=== PATIENT | female | born 1995 | race Hispanic/Latino ===

== ENCOUNTER 2018-08-21 19:14 | Emergency (ER) | payer OTHER ==
[~2018-08-21] VITALS: Ht 170.2 cm; Wt 90.9 kg
[2018-08-21 19:15] VITALS: BP 132/74
[2018-08-21] MEDS ORDERED: BACT800T5 PO (19:49)
[2018-08-21] MEDS ORDERED: BACI500O8 TOP (19:51)
[2018-08-21] MEDS ORDERED: BACTRIM 160MG/800MG DS TAB PO ONE (20:00)
== END 2018-08-21 20:18 | disposition home or self-care (01) ==
LOC: M ED 19:14
DX: L05.01 Pilonidal cyst with abscess (principal); Z87.42 Personal history of other diseases of the female genital tract

== ENCOUNTER 2018-10-13 21:02 | Emergency (ER) | payer OTHER ==
[~2018-10-13] VITALS: Ht 165.1 cm; Wt 90.9 kg
[~2018-10-13 21:02] MED LIST: BACI500O8 TOP; BACT800T5 PO
[2018-10-13 22:16] LABS: BASO % 0.5 % (0.0-1.0); EOS # 0.1 10^3/uL (0.0-0.50); EOS % 1.6 % (0.0-3.0); HEMATOCRIT 41.8 % (36.0-47.0); HEMOGLOBIN 14.2 g/dl (12.0-15.5); LYMPH # 2.6 10^3/uL (1.5-6.5); MEAN CORPUSCULAR HEMOGLOBIN 29.7 pg (27.0-33.0); MEAN CORPUSCULAR VOLUME 87.4 fl (80.0-96.0); MONO # 0.4 10^3/uL (0.0-0.8); MONO % 6.9 % (0.0-5.0); NEUTROPHILS % 48.8 % (36.0-66.0); PLATELET COUNT, AUTOMATED 228 10^3/uL (150-450); RED BLOOD COUNT 4.78 10^6/uL (4.00-5.40); WHITE BLOOD COUNT 6.1 10^3/uL (4.0-10.0)
[2018-10-13] MEDS ORDERED: NS 1,000 ML IV ONE (22:30)
[2018-10-13 22:42] LABS: BILIRUBIN, URINE MANUAL NEGATIVE (NEGATIVE); GLUCOSE, URINE (UA) MANUAL NEGATIVE (NEGATIVE); KETONE, URINE MANUAL NEGATIVE (NEGATIVE); UROBILINOGEN, URINE MANUAL NORMAL (NORMAL)
[2018-10-13 22:43] LABS: BLOOD UREA NITROGEN 12 MG/DL (7-18); CALCIUM LEVEL 9.2 MG/DL (8.5-10.1); CARBON DIOXIDE LEVEL 28 MEQ/L (21-32); CHLORIDE LEVEL 104 MEQ/L (98-107); CREATININE FOR GFR 0.99 MG/DL (0.55-1.30); GLOMERULAR FILTRATION RATE > 60.0 (>60); GLUCOSE, FASTING 80 MG/DL (70-100); POTASSIUM SERUM 3.8 MEQ/L (3.5-5.1); SODIUM LEVEL 139 MEQ/L (136-145)
[2018-10-13 22:48] LABS: BACTERIA, URINE NONE SEEN; HYALINE CAST, URINE NONE SEEN /lpf (0-1); RBC, URINE 40-50 /hpf (0-3); SQUAMOUS EPITHELIAL CELL URINE SMALL AMOUNT /hpf (SMALL AMT)
[2018-10-13 22:51] LABS: HCG, SERUM QUALITATIVE NEGATIVE (NEGATIVE)
--- NOTE | 2018-10-13 23:33 | REPVR ---
EXAM: US Pelvis Complete, Transabdominal EXAM DATE/TIME: 10/13/2018 11:14 PM CLINICAL HISTORY: 22 years old, female; Signs and symptoms; Menstruation abnormalities; Excessive menstruation; Additional info: Heavy vaginal bleeding x 2 weeks, HX of ruptured cyst TECHNIQUE: Imaging protocol: Real-time transabdominal pelvic ultrasound with image documentation. Complete exam. COMPARISON: No relevant prior studies available. FINDINGS: Uterus/cervix: Uterus measures 7.5 x 3.7 x 5.3 cm. Endometrial complex measures 7.4 mm. Right adnexa: Right ovary measures 3.6 x 2.8 x 3.1 cm. Left adnexa: Left ovary measures 4.2 x 2.5 x 1.7 cm. Free fluid: None. Bladder: Normal. IMPRESSION: Normal study. Electronically signed by: Bill Andrews On 10/13/2018 23:32:42 PM
[2018-10-14 00:40] VITALS: BP 115/77
== END 2018-10-14 00:42 | disposition home or self-care (01) ==
LOC: M ED 21:02
DX: N89.8 Other specified noninflammatory disorders of vagina (principal)

== ENCOUNTER → 2019-03-04 | Outpatient (REF) | payer OTHER | LOC: M SFHCLUC 10:57 | PROVIDERS: ATTEND Nurse Practitioner Family | DX: J02.9 Acute pharyngitis, unspecified (principal) ==

== ENCOUNTER 2019-04-26 13:17 | Day surgery (SDC) | payer OTHER ==
[~2019-04-26] VITALS: Ht 170.2 cm; Wt 94.3 kg
[2019-04-26 13:59] LABS: HEMATOCRIT 40.1 % (36.0-47.0); HEMOGLOBIN 13.2 g/dl (12.0-15.5); MEAN CORPUSCULAR HEMOGLOBIN 29.6 pg (27.0-33.0); MEAN CORPUSCULAR HGB CONC 32.9 g/dl (32.0-36.5); MEAN CORPUSCULAR VOLUME 89.9 fl (80.0-96.0); PLATELET COUNT, AUTOMATED 190 10^3/uL (150-450); RED BLOOD COUNT 4.46 10^6/uL (4.00-5.40)
[2019-04-26] MEDS ORDERED: dexameTHASONE 4 MG/ML 1ML VIAL (J1100) As Ordered ONE (16:56)
[2019-04-26] MEDS ORDERED: PROPOFOL 200 MG/20 ML VIAL As Ordered ONE (16:56)
[2019-04-26] MEDS ORDERED: LIDOCAINE 2% INJ 100 MG/5 ML SDV (FOR ANES.) As Ordered ONE (16:56)
[2019-04-26] MEDS ORDERED: ONDANSETRON 4MG/2ML VIAL (J2405) As Ordered ONE (16:56)
[2019-04-26] MEDS ORDERED: KETOROLAC 60 MG/2 ML VIAL (J1885) As Ordered ONE (16:56)
[2019-04-26] MEDS ORDERED: fentaNYL 100 MCG/2 ML INJECTION (J3010) As Ordered ONE (17:00)
[2019-04-26] MEDS ORDERED: MIDAZOLAM INJ 2 MG/2 ML VIAL (J2250) As Ordered ONE (17:00)
[2019-04-26] MEDS ORDERED: ACETAMINOPHEN 650 MG SUPP As Ordered ONE (17:10)
[2019-04-26] MEDS ORDERED: OXYTOCIN INJ 10 UNITS/ML VIAL (J2590) As Ordered ONE (17:34)
[2019-04-26] MEDS ORDERED: PERCOCET 5MG/325MG TAB As Ordered ONE ×2 (18:27→18:55)
[2019-04-26] MEDS: PERCOCET 5MG/325MG TAB PO PRN ×2 (18:30→19:00)
[2019-04-26] MEDS ORDERED: KETOROLAC 30 MG/ML VIAL (J1885) IV PRN ×2 (19:15→23:00)
[2019-04-26] MEDS ORDERED: LR 1,000 ML IV SCH (19:15)
[2019-04-26] MEDS ORDERED: fentaNYL 100 MCG/2 ML INJECTION (J3010) IV PRN (19:15)
[2019-04-26] MEDS ORDERED: METOCLOPRAMIDE INJ 10MG/2ML VIAL (J2765) IV PRN (19:15)
[2019-04-26] MEDS ORDERED: ONDANSETRON 4MG/2ML VIAL (J2405) IV PRN (19:15)
[2019-04-26 20:20] VITALS: BP 133/66
--- NOTE | 2019-04-30 11:28 | RO ---
DATE OF PROCEDURE: 04/26/2019 PREPROCEDURE DIAGNOSIS: Missed . POSTPROCEDURE DIAGNOSIS: Missed . OPERATION PROPOSED: Suction curettage. OPERATION PERFORMED: Suction curettage. ANESTHESIA: General. ESTIMATED BLOOD LOSS: 100 mL. SURGEON: Valeriy Hackett MD RACING DRIVER: DESCRIPTION OF PROCEDURE: After adequate time-out, prepped and draped in the lithotomy position, bladder drained for 200 mL of clear urine, acetaminophen suppository 1300 mg per rectum, weighted speculum in the vagina, single tooth tenaculum on the anterior lip of the cervix, uterus sounded to a depth of 10 cm, already dilated to a 12, curved suction curette #9 was applied. Curettage until the cavity was smooth. Uterus was placed in anatomical position, well contracted under Pitocin. The patient is Rh positive and does not require RhoGam. The patient was sent to recovery in good condition.
== END 2019-04-26 20:20 | disposition home or self-care (01) ==
LOC: M SDC 13:17
PROVIDERS: ATTEND Obstetrics & Gynecology
DX: O02.1 Missed abortion (principal)
CPT/HCPCS: 36415; 59820; 85027; 86850; 86900; 86901; 88305; J1100; J1885; J2250; J2405; J2590; J3010

== ENCOUNTER 2019-06-10 03:27 | Emergency (ER) | payer OTHER ==
[~2019-06-10] VITALS: Ht 167.6 cm; Wt 98.6 kg
[2019-06-10 03:27] VITALS: BP 140/81
[2019-06-10] MEDS ORDERED: KETOROLAC 60 MG/2 ML VIAL (J1885) IM ONE (04:30)
--- NOTE | 2019-06-10 06:22 | ECGEPIP ---
[facility] - ED Test Date: 2019-06-10 Pat Name: FRANCES ABDULLAHI Department: Room: - Gender: Female Pediatric Lpn: supriya : 1995 Requested By: DARVIN LAM Order Number: [id number] Reading MD: Juan Sandoval Measurements Intervals [place] Rate: 79 P: 22 VT: 139 QRS: 55 QRSD: 106 T: 44 QT: 384 QTc: 442 Interpretive Statements SINUS RHYTHM WITH SINUS ARRHYTHMIA MODERATE T-WAVE ABNORMALITY, CONSIDER ANTERIOR ISCHEMIA NO PRIOR ECG FOR COMPARISON clinical correlation advised Electronically Signed on 06-10-2019 6:22:15 EST by Juan Sandoval
--- NOTE | 2019-06-10 08:43 | REP ---
Portable chest x-ray: Single view. History: Chest pain. No comparison study. Findings: The lungs are well inflated and clear. The pleural angles are sharp. Heart size is normal. Pulmonary vasculature is not increased. No significant bony abnormality is seen. Impression: Negative portable chest. Electronically Signed by Juan J Arroyo MD 06/10/2019 08:33 A
== END 2019-06-10 04:57 | disposition home or self-care (01) ==
LOC: M ED 03:27
DX: R07.1 Chest pain on breathing (principal)
CPT/HCPCS: 36600; 71045; 82803; 93005; 96372; 99284; J1885